=== PATIENT | female | born 1960 | race Caucasian/White ===

== ENCOUNTER 2017-05-09 11:22 | Day surgery (SDC) | payer OTHER ==
[~2017-05-09] VITALS: Ht 157.5 cm; Wt 80.4 kg
[2017-05-09 11:55] VITALS: Ht 157.5 cm; Wt 80.4 kg
[2017-05-09 12:23] VITALS: BP 135/68; PULSE 65; RESP 13
[2017-05-09] MEDS ORDERED: [UNRECOGNIZED DRUG - REMARK] BOTH EYES (12:29)
[2017-05-09] MEDS ORDERED: MIDAZOLAM 1 MG/ML 2 ML INJ ONE ×2 (13:34)
[2017-05-09] MEDS ORDERED: FENTAnyl 50 MCG/ML VIAL ONE (13:34)
--- NOTE | 2017-05-09 13:40 | OPPN ---
Date/Time of Note Date/Time of Note DATE: 05/09/17 TIME: 13:38 Operative Report Preoperative Diagnosis screening Postoperative Diagnosis diverticulosis left colon otherwise normal Operation/Procedure Performed colonoscopy Anesthesia Type: moderate sedation (see dictation) Estimated blood loss: none Transfusion Required: no Specimen: none Grafts/Implants: none Complications: no FRANKLYN LOPEZ MD May 09, 2017 13:40
[2017-05-09 14:06] VITALS: BP 118/69; RESP 18
--- NOTE | 2017-05-09 14:44 | GILP ---
DATE OF PROCEDURE: 05/09/2017 PREOPERATIVE DIAGNOSIS: Screening colonoscopy. POSTOP DIAGNOSIS: Diverticulosis in the left colon, otherwise essentially normal mucosa. PROCEDURE: Colonoscopy up to cecum. SURGEON: Marilin Deleon MD DESCRIPTION OF PROCEDURE: The patient was put in left lateral decubitus after obtaining informed consent. The patient received 4 mg IV Versed said and 100 mcg of fentanyl. Very carefully advanced an Olympus video colonoscope all the way to the cecum. The ileocecal valve, appendiceal opening identified. Cecum, ascending colon, transverse colon, descending colon, sigmoid colon, rectum examined, demonstrated diverticulosis especially in the left colon but no evidence of any diverticulitis. Upon removal of scope, patient had no complication. PLAN: To recommend high-fiber diet. Follow up with primary MD. Repeat colonoscopy in 10 years. Dictated By: Marilin Dleeon MD /simón/dior /Document#: [id number] ; Dr. Sean Wallace
== END 2017-05-09 14:27 | disposition home or self-care (01) ==
LOC: GIL 11:22
PROVIDERS: ATTEND Internal Medicine
DX: Z12.11 Encounter for screening for malignant neoplasm of colon (principal); K57.30 Diverticulosis of large intestine without perforation or abscess without bleeding; Z90.49 Acquired absence of other specified parts of digestive tract
CPT/HCPCS: 45378; J2250; J3010